=== PATIENT | male | born 1965 | race American Indian/Alaskan Native ===

== ENCOUNTER 2017-12-04 05:52 | Day surgery (SDC) | payer OTHER ==
[2017-12-04 07:18] LABS: Basophils # (Auto) 0.1 K/mm3 (0.0-0.1); Basophils % (Auto) 1.2 % (0.0-1.8); Eosinophils # (Auto) 0.4 K/mm3 (0.0-0.4); Eosinophils % (Auto) 4.8 % (0.0-4.3); Hemoglobin 11.5 gm/dl (11.8-15.2); Lymphocytes # (Auto) 0.9 K/mm3 (1.2-5.4); Lymphocytes % (Auto) 11.6 % (13.4-35.0); Mean Corpuscular HGB Conc 34 % (32-34); Mean Corpuscular Hemoglobin 27 pg (28-32); Mean Corpuscular Volume 79 fl (84-94); Monocytes % (Auto) 12.7 % (0.0-7.3); Platelet Count 301 K/mm3 (140-440); Red Cell Distribution Width 14.1 % (13.2-15.2)
[2017-12-04 07:29] LABS: INR 0.93 (0.87-1.13)
[2017-12-04 07:37] LABS: Alanine Aminotransferase 69 units/L (7-56); Albumin 3.3 g/dL (3.9-5); BUN/Creatinine Ratio 16; Blood Urea Nitrogen 13 mg/dL (9-20); Calcium 8.9 mg/dL (8.4-10.2); Hemolysis Index 0
[2017-12-04] MEDS ORDERED: VERSED IV ONE (08:59)
[2017-12-04] MEDS ORDERED: SUBLIMAZE ONE (09:00)
[2017-12-04] MEDS ORDERED: VERSED IV NR (09:21)
[2017-12-04] MEDS ORDERED: SUBLIMAZE IV NR (09:21)
--- NOTE | 2017-12-04 10:31 | Cat Scan Report ---
CT BIOPSY LIVER History: Liver mass, pancreas mass. Description of procedure: Informed consent was obtained. A sterile technique was utilized. Moderate sedation was accomplished with Versed and fentanyl. The patient was sedated for 15 minutes. Independent cardiorespiratory monitoring by RN. Intraobserver time of [address] guidance, a 17-gauge introducer needle was advanced to the leading edge of a 2.9 cm right hepatic lobe mass. 2 separate 2.3 cm 18-gauge core biopsies were obtained. Pathology was present and deemed the samples adequate. No complications. Impression: Successful CT-guided biopsy of a 2.9 cm right hepatic lobe mass.
[2017-12-04 12:08] VITALS: BP 120/64
== END 2017-12-04 13:05 | disposition home or self-care (01) ==
LOC: CATHLABREC 05:52 → EDSTATUS 07:30 → CATHLABREC 13:05
DX: C22.7 Other specified carcinomas of liver (principal)
CPT/HCPCS: 36415; 47000; 77012; 80053; 82378; 85025; 85610; 85730; 86301; 88307; 88333; 88341; 88342; J2250; J3010; 88172; 88173

== ENCOUNTER 2017-12-25 07:29 | Outpatient (CLI) | payer OTHER ==
--- NOTE | 2017-12-29 07:54 | PET Report ---
PET SB TO MT INITIAL: HISTORY: Pancreatic cancer, liver metastasis c25 .9. TECHNIQUE: 15.1 millicuries F-18 FDG was administered intravenously. Noncontrast CT images and PET images were obtained from the skull base to the proximal thighs. Fused images were reviewed on a workstation. The patient's blood glucose level measured 187. COMPARISON: CT liver biopsy dated 12/04/17. FINDINGS: BRAIN: physiologic FDG uptake in the imaged brain. NECK: physiologic FDG uptake. MEDIASTINUM: physiologic FDG uptake. LUNGS: physiologic FDG uptake. PLEURA/PERICARDIUM: physiologic FDG uptake. THORACIC LYMPH NODES: physiologic FDG uptake. HEPATOBILIARY: There are too many to count hypodense liver masses measuring up to 6 cm in diameter. Max SUV in the medial right hepatic lobe measures 5.3. Mean liver SUV measures 3.4. PANCREAS: There is an ill-defined 3 cm mass in the body of the pancreas with Max SUV measuring 5.3. There is mild atrophy of the pancreatic tail with mild ductal dilatation. SPLEEN: physiologic FDG uptake. ADRENAL GLANDS: physiologic FDG uptake. KIDNEYS/RENAL COLLECTING SYSTEMS: physiologic FDG uptake. BOWEL/MESENTERY: physiologic FDG uptake. PELVIC VISCERA: physiologic FDG uptake. ABDOMINAL/PELVIC LYMPH NODES: physiologic FDG uptake. MUSCULOSKELETAL: physiologic FDG uptake. IMPRESSION: Approximate 3 cm hypermetabolic pancreatic mass with numerous hypermetabolic liver masses consistent with metastatic pancreatic cancer. No evidence for julia, pulmonary or osseous metastasis.
== END 2017-12-25 07:30 | disposition home or self-care (01) ==
LOC: PET 07:29
DX: C78.7 Secondary malignant neoplasm of liver and intrahepatic bile duct (principal); C77.9 Secondary and unspecified malignant neoplasm of lymph node, unspecified; C25.9 Malignant neoplasm of pancreas, unspecified; Z79.899 Other long term (current) drug therapy
CPT/HCPCS: 78816; 82962; A9552

== ENCOUNTER 2018-04-08 09:04 | Outpatient (CLI) | payer OTHER ==
[2018-04-08 10:06] LABS: Blood Urea Nitrogen 13 mg/dL (9-20)
[2018-04-08] MEDS ORDERED: NACL 0.9% 50 ML ONE (10:29)
--- NOTE | 2018-04-08 15:57 | Cat Scan Report ---
CT abdomen with contrast: Pancreatic cancer. Following administration of IV and oral contrast transverse images were obtained from the lung bases to the iliac crests. Coronal and sagittal 2-D reformatted images included. No comparison exams. The visualized lung bases are clear with no nodules. Multiple masses are diffusely distributed through the liver. They are too numerous to count. The largest lesion is approximately 3 cm. There is a 3.75 cm pancreatic head mass. There is dilatation of the proximal pancreatic duct. There is no oral contrast in the stomach or duodenum making evaluation of gastric and duodenal involvement difficult. There is some question however as to whether there may be a mass near the mid body of the stomach but no evidence of overt obstruction. No adenopathy appreciated. No identified arterial vascular invasion. Veins are not opacified. The retroperitoneal structures otherwise appear unremarkable. The opacified bowel appears normal. Impression: The findings are consistent with pancreatic cancer with diffuse hepatic metastases. Limited evaluation of adjacent stomach and bowel.
== END 2018-04-08 09:05 | disposition home or self-care (01) ==
LOC: CT 09:04
DX: C25.1 Malignant neoplasm of body of pancreas (principal); I10 Essential (primary) hypertension; E78.00 Pure hypercholesterolemia, unspecified; J45.909 Unspecified asthma, uncomplicated; M19.90 Unspecified osteoarthritis, unspecified site
CPT/HCPCS: 36415; 74160; 82565; 84520; Q9967

== ENCOUNTER 2018-09-24 11:06 | Outpatient (CLI) | payer OTHER ==
--- NOTE | 2018-09-25 09:47 | PET Report ---
PET SB TO MT SUBSEQUENT: HISTORY: Restaging of pancreatic cancer. TECHNIQUE: 12.7 millicuries F-18 FDG was administered intravenously. Noncontrast CT images and PET images were obtained from the skull base to the proximal thighs. Fused images were reviewed on a workstation. The patient's blood glucose level measured 200. COMPARISON: 12/04/17. FINDINGS: BRAIN: physiologic FDG uptake in the imaged brain. NECK: physiologic FDG uptake. MEDIASTINUM: physiologic FDG uptake. LUNGS: physiologic FDG uptake. PLEURA/PERICARDIUM: physiologic FDG uptake. THORACIC LYMPH NODES: physiologic FDG uptake. HEPATOBILIARY: Numerous hypodense liver lesions have significantly improved since the previous exam. The liver lesions have decreased in number and size by approximately 50%. There is decreased metabolic activity in the liver lesions as well. For instance, a right hepatic lobe mass demonstrates a decreased max SUV from 5.3 to 4.4. PANCREAS: Ill-defined pancreatic mass appears stable in size measuring approximately 3.3 cm. Max SUV has decreased from 4.8 to 3.9. There is increased atrophy of the pancreatic tail. SPLEEN: physiologic FDG uptake. Mild splenomegaly has developed increasing from 11.4 to 13.3 cm in length. No focal splenic lesion ADRENAL GLANDS: physiologic FDG uptake. KIDNEYS/RENAL COLLECTING SYSTEMS: physiologic FDG uptake. BOWEL/MESENTERY: physiologic FDG uptake. PELVIC VISCERA: physiologic FDG uptake. ABDOMINAL/PELVIC LYMPH NODES: physiologic FDG uptake. MUSCULOSKELETAL: Multiple new destructive bony lesions have developed. Lytic lesions are identified in C7, right T2-3 facet, right posterior ribs levels 1-3, right lateral eighth rib, right scapula and left iliac bone. Pathologic fracture of the left acetabulum is suspected as well. Max SUV in the left iliac bone measures 4.9. Max SUV in multiple right rib lesions range from 2.8 - 4.2. There are 3 areas of abnormal uptake in the right scapula measuring 3.6, 3.8 and 4.6. IMPRESSION: Progression of disease as demonstrated since 12/25/17. The pancreatic mass appears relatively stable in size with mild decreased metabolic activity. Multiple hypermetabolic liver lesions have decreased by approximately 50%. However, there are multiple new lytic hypermetabolic bony lesions as outlined above. Suspected pathologic fracture of the left acetabulum, correlate with the patient.
== END 2018-09-24 11:07 | disposition home or self-care (01) ==
LOC: PET 11:06
PROVIDERS: ATTEND Internal Medicine Hematology & Oncology
DX: C78.7 Secondary malignant neoplasm of liver and intrahepatic bile duct (principal); C25.1 Malignant neoplasm of body of pancreas; D64.81 Anemia due to antineoplastic chemotherapy; I10 Essential (primary) hypertension; R97.8 Other abnormal tumor markers; E78.00 Pure hypercholesterolemia, unspecified; J45.909 Unspecified asthma, uncomplicated; K21.9 Gastro-esophageal reflux disease without esophagitis; M19.90 Unspecified osteoarthritis, unspecified site
CPT/HCPCS: 78815; 82962; A9552